=== PATIENT | female | born 2000 | race Asian ===

== ENCOUNTER 2025-01-14 12:56 | Emergency (ER) | payer BC, SELFPAY ==
[2025-01-14] VITALS (13 sets, daily range): BP systolic 107–133; BP diastolic 61–74; PULSE 54–69; RESP 13–24; TEMP 36.6–37.1; O2SAT 98–100; BMI 27.3
--- NOTE | 2025-01-14 14:04 | EKG12_ITS ---
Test Reason : CP Blood Pressure : */* mmHG Vent. Rate : 61 BPM Atrial Rate : 61 BPM P-R Int : 156 ms QRS Dur : 74 ms QT Int : 402 ms P-R-T Axes : 27 56 35 degrees QTcB Int : 404 ms Normal sinus rhythm Normal ECG Confirmed by MEENU BASURTO, YAHAIRA ([id number]), slot editor NEMESIO CORBETT ([id number]) on 01/15/2025 1:31:52 PM Referred By: TL/KUDLEEP Confirmed By: YAHAIRA CORRIGAN MD
--- NOTE | 2025-01-14 15:00 | RAD_ITS ---
PROCEDURE: CHEST 1 VIEW (PORTABLE) 01/14/2025 REASON FOR EXAM: CHEST PAIN TECHNIQUE: Frontal view of the chest. COMPARISON: None. FINDINGS: Hardware: None. Heart: The heart size is normal. Lungs: No focal consolidation, pleural effusion or pneumothorax. Bones: The bones are unremarkable. Other: Ornamental jewelry overlying the bilateral chest. RAD/Chest 1 View (Portable) IMPRESSION: Negative Chest. Reading Location: [id number]
[2025-01-14 15:05] LABS: Absolute Lymphocyte Count 2.52 X10^3/uL (0.83-4.51); Absolute Neutrophil Count 3.6 X10^3/uL (2.0-7.7); Basophil# 0.01 X10^3/uL; Basophil% 0.1 % (0-1); Eosinophil# 0.03 X10^3/uL; Eosinophils% 0.4 % (0-5); Lymphocyte # 2.52 X10^3/ul (0.83-4.51); Lymphocyte % 37.4 % (19-41); Mean Corp Hgb Conc 33.3 g/dL (32-36); Mean Corpuscular Volume 90.1 fL (81-99); Mean Platelet Vol. 8.4 fl (6.2-12.0); Monocyte# 0.55 X10^3/uL; Monocyte% 8.2 % (0-10); NRBC Flagged by Analyzer 0 % (0-5); Neutrophil # 3.61 X10^3/uL (2.7-7.7); Neutrophil % 53.6 % (47-70); Platelet Count 222 K/mm3 (150-450); RBC Distribution Width CV 12.6 % (11.6-14.6); RBC Distribution Width SD 41.7 fl (35.1-43.9); Red Blood Count 4.33 M/mm3 (4.2-5.4); White Blood Count 6.7 K/mm3 (4.4-11.0)
--- NOTE | 2025-01-14 15:21 | EDS_ITS ---
HPI History of Present Illness Chief Complaint: Chest Pain Detail of Chief Complaint: Transient central chest tightness Informant: patient Onset/Context/Timing Onset: Yesterday (For episodes since last evening) and Weeks (Intermittently x 1 week) Timing: Intermittent and Lasts (Seconds) Quality: Positive for Tightness Location: Substernal, Right Parasternal, Left Parasternal, Right Chest, Left Chest and - (Also complains of ache in her left bicep.) Current Severity: Gone Maximum Severity: Had episode in November that took her breath away when she was talking to some Worsened By: Nothing Relieved By: Nothing Associated Symptoms: Negative for Nausea, Vomiting, Diaphoresis, Dyspnea, Cough, Fever, Lightheadedness, Acid Reflux or Palpitations Narrative Narrative: Patient is a 24-year-old female. She has no significant past medical history. She does not smoke. Family history is remarkable for mother having cholecystectomy. She reports seconds of chest tightness. There is no radiation. She is also complaining now of left arm discomfort. The arm discomfort is still present. Nothing makes the arm discomfort better or worse. Nothing precipitated it. It started at rest. She denies intolerance to greasy or fried foods. She denies black or maroon- colored stool. She developed upper respiratory symptoms a couple of days ago. She states is very mild. Patient works out with weights. She denies any precipitation of the discomfort with use of weights. CVD Risk Factors: Negative for Hypertension, Diabetes, Hypercholesterolemia, Family History 1' </=55 or Smoking PE Risk Factors: Negative for Recent Travel/Surgery, Recent Immobilization, Prior DVT or PE, Cancer or OCP + Smoking + >/=35 TAD Risk Factors: Negative for Marfan's Syndrome, Hypertension or Family History [facility] Medical History Asthma Home Medications ?Medication ?Instructions ?Recorded ?Last Taken ?Type NK 01/14/25 Unknown History Allergy/AdvReac Type Severity Reaction Status Date / Time No Known Allergies Allergy Verified 01/14/25 12:58 Family History no significant family his Surgical History History of placement of ear tubes Social History Smoking Status: Never smoker ROS ROS ED Constitutional Constitutional ED: Denies chills, fever(s) or subjective Eyes Eyes: Reports none ENT ENT ED: Reports rhinorrhea and sore throat; Denies ear pain Cardiovascular Cardiovascular: Reports as per HPI and other Details: The chest discomfort is not positional. ; Denies orthopnea or paroxysmal nocturnal dyspnea Respiratory/Chest Respiratory/Chest: Denies cough, dyspnea, dyspnea on exertion, orthopnea, paroxysmal nocturnal dyspnea or sputum Gastrointestinal Gastrointestinal: Denies abdominal pain, constipation, melena or vomiting Musculoskeletal Musculoskeletal: Denies arthralgias, back pain or myalgias Integumentary Denies rash Psychiatric Psychiatric: Denies anxiety or depression Endocrine Endocrinology: Denies cold intolerance or heat intolerance Hematologic/Lymphatic Hematologic/Lymphatic: Denies easy bleeding or easy bruising EXAM Physical Exam Const Vital Signs: 01/14/25 12:58 01/14/25 14:57 01/14/25 14:59 Temperature 98.8 F Temperature Source Oral Pulse Rate 64 56 L Respiratory Rate 18 21 H Blood Pressure 133/74 H 118/61 Blood Pressure Mean 93 80 Pulse Ox 98 100 100 Oxygen Delivery Method Room Air Room Air Room Air 01/14/25 15:00 01/14/25 15:15 01/14/25 15:30 Temperature Temperature Source Pulse Rate 59 L 63 63 Respiratory Rate 20 H 18 13 Blood Pressure 108/63 110/63 Blood Pressure Mean 78 77 Pulse Ox 100 100 99 Oxygen Delivery Method Room Air 01/14/25 15:31 01/14/25 15:45 01/14/25 16:00 Temperature Temperature Source Pulse Rate 69 61 59 L Respiratory Rate 14 21 H 20 H Blood Pressure 107/68 111/67 114/72 Blood Pressure Mean 79 81 84 Pulse Ox 99 100 Oxygen Delivery Method 01/14/25 16:15 Temperature Temperature Source Pulse Rate 57 L Respiratory Rate 21 H Blood Pressure Blood Pressure Mean Pulse Ox 100 Oxygen Delivery Method Positive well nourished and well developed General Appearance ED: well developed and NAD; Negative for pallor HEENT Reports moist mucous membranes normocephalic and atraumatic Eyes PERRL and EOMs intact bilaterally General Eye ED: Negative for scleral icterus Chest Wall palpation of chest normal Resp normal respiratory effort and clear to auscultation bilaterally Cardio regular rate, regular rhythm, S1 normal heart sound, S2 normal heart sound and no murmurs Peripheral Pulses: pulses 2+ throughout Extremity normal to inspection Extremity Narrative: There is no asymmetry, swelling, discoloration, leg vein distention, palpable cords or tenderness along the distribution of the deep venous system. Neuro oriented x3 and CN's II-XII intact bilaterally Sensorium / Orientation: awake and alert Psych mental status grossly normal Skin no rashes or lesions noted and no wounds General Skin Exam: Negative for jaundice or pallor MDM MDM MDM Narrative Medical decision making narrative: Patient with very atypical chest pain. Etiology/differential pain of unknown etiology, GI etiology, cardiac etiology unlikely, patient is PERC negative and Wells score is less than 3. History and physical is not consistent with pneumothorax. Lab Data Attestation: I reviewed the patient's lab results. Lab results narrative: Electrolyte panel is normal. Troponin is less than 6. CBC is normal. Labs: Laboratory Results - last 24 hr 01/14/25 01/14/25 14:19 16:19 WBC 6.7 RBC 4.33 Hgb 13.0 Hct 39.0 MCV 90.1 MCH 30.0 MCHC 33.3 RDW Std Deviation 41.7 RDW Coeff of Mackenzie 12.6 Plt Count 222 MPV 8.4 Immature Gran % (Auto) 0.300 Neut % (Auto) 53.6 Lymph % (Auto) 37.4 [place] % (Auto) 8.2 Eos % (Auto) 0.4 Baso % (Auto) 0.1 Absolute Neuts (auto) 3.6 Absolute Lymphs (auto) 2.52 Nucleated RBC % 0 Sodium 140 Potassium 4.3 Chloride 105 Carbon Dioxide 25.1 Anion Gap 10 BUN 8 Creatinine 0.75 Estim Creat Clear Calc 130.76 Est GFR (MDRD) Non-Af 115 BUN/Creatinine Ratio 10.1 Glucose 79 Calcium 9.7 Troponin T High Sens < 6 Troponin T Hi Sens 2 Hr < 6 Radiography Chest X-Ray - ED: 2 View and Read by ED Physician (Reviewed interpreted by me as negative. Cardiac silhouette size normal. Lung parenchyma normal. There is no effusion. There is no pneumothorax. Patient is noted to have piercing of her nipples.) Diagnostic Testing: Clinical Impression(s) from Imaging Studies Chest X-Ray 01/14/25 15:00 IMPRESSION: Negative Chest. Reading Location: [id number] EKG Initial EKG: Attestation: I personally reviewed and interpreted this EKG as follows: Interpretation: Sinus Rhythm (Rate is 61. EKG is normal. MO interval is 156 ms. QRS duration 74 ms. QT duration 402 ms. [place] is normal) Treatment and Re-Evaluation :: Patient and parents were informed of all the results. She be discharged to home. She was told the cause of her pain is unknown. Discharge Plan Triage Chief Complaint: Chest Pain ED Provider: Nikko Ross Dx/Rx/DC Orders Clinical Impression: Chest pressure Instructions: ED Chest Pain, Noncardiac Prescriptions: No Action NK Primary Care Provider: Iam Ayala Referrals: Iam Ayala MD [Primary Care Provider] - 1 Week if not improving Print Language: Occitan Disposition Disposition: Home, Self Care
[2025-01-14 15:35] LABS: Anion Gap 10 (5-15); BUN 8 mg/dL (4-19); BUN/Creat Ratio 10.1 RATIO (10-20); Calcium,Total 9.7 mg/dL (7.6-11.0); Carbon Dioxide 25.1 mmol/L (21.0-32.0); Chloride 105 mmol/L (98-108); Creatinine, Serum 0.75 mg/dL (0.70-1.20); EST Glomerular Filtration Rate 115 (>60); Estimated Creatinine Clearance 130.76 ml/min (50-250); Glucose 79 mg/dL (70-99); Potassium 4.3 mmol/L (3.3-5.1); Sodium Level 140 mmol/L (133-145); Troponin T High Sensitivity < 6 ng/L (<=14)
[2025-01-14 17:00] LABS: Troponin T High Sens 2 HR < 6 ng/L (<=14)
== END 2025-01-14 17:22 | disposition home or self-care (01) ==
PROVIDERS: Emergency Provider Emergency Medicine; PCP Family Medicine; Visit Provider Emergency Medicine
DX: R07.89 Other chest pain (principal); J45.909 Unspecified asthma, uncomplicated
CPT/HCPCS: 71045; 80048; 84484; 85025; 93005; 99284; A4216